=== PATIENT | male | born 1975 | race Caucasian/White ===

== ENCOUNTER 2022-10-31 07:50 | Day surgery (SDC) | payer OTHER ==
[2022-10-30 16:12] LABS: Basophils # (auto) 0.1 10 ^3/uL (0-0.2); Basophils % (auto) 0.8 % (0.0-2.0); Eosinophils # (auto) 0.1 10 ^3/uL (0-0.8); Hematocrit 41.6 % (41.0-53.0); Hemoglobin 14.5 g/dL (13.5-17.5); Lymphocytes % (auto) 28.2 % (10.0-50.0); Mean Corpuscular Hemoglobin 32.1 pg (28.0-32.0); Mean Corpuscular Hgb Conc. 34.9 g/dL (32.0-36.0); Mean Corpuscular Volume 91.8 fL (80.0-100.0); Monocytes # (auto) 0.7 10 ^3/uL (0-1.3); Monocytes % (auto) 9.7 % (0.0-12.0); Neutrophils # (auto) 4.2 10 ^3/uL (1.6-8.6); Neutrophils % (auto) 59.3 % (37.0-80.0); Red Blood Cells 4.53 10^6/uL (4.5-5.90); Red Cell Distribution Width 13.4 % (11.8-14.3)
[~2022-10-31] VITALS: Ht 167.6 cm; Wt 70.3 kg
[~2022-10-31 07:50] MED LIST: BUPR150T8 PO; OMEP-434 PO; PAR20T PO; PERCOT PO
[2022-10-31] MEDS ORDERED: PHENYLEPHRINE HCL 10 MG/ML VL IV ONE (07:51)
[2022-10-31] MEDS ORDERED: KETAMINE 50mg/ML 10ml Vial (500mg/10ml) IV ONE (07:51)
[2022-10-31] MEDS ORDERED: LIDOCAINE 1% HCL (LOCAL ANESTH.) INJ 20ML MDV ONE (08:42)
[2022-10-31] MEDS ORDERED: BUPIVACAINE 0.25% INJ 50ML VIAL ONE (08:42)
[2022-10-31] MEDS ORDERED: ceFAZolin 1GM/50ML 100 ML IV ONE (08:42)
[2022-10-31] MEDS ORDERED: ACETAMINOPHEN 500 MG TAB PO ONE (08:45)
[2022-10-31] MEDS ORDERED: CELECOXIB 100 MG CAP PO ONE (08:45)
[2022-10-31] MEDS ORDERED: GABAPENTIN 400 MG CAP PO ONE (08:45)
[2022-10-31] MEDS ORDERED: KETOROLAC TROMETH 30 MG/ML 1ML VIAL ONE (08:56)
[2022-10-31] MEDS ORDERED: DexAMETHasone SOD PHOS 10MG/1ML VIAL INJ ONE (08:56)
[2022-10-31] MEDS ORDERED: LIDOCAINE 2% (LOCAL ANESTH.) PF 5ml SDV ONE (08:56)
[2022-10-31] MEDS ORDERED: GLYCOPYRROLATE 0.2 MG/ML 1ML VIAL ONE (08:56)
[2022-10-31] MEDS ORDERED: ROCURONIUM 10MG/ML 10ML VIAL IV ONE (08:56)
[2022-10-31] MEDS ORDERED: PROPOFOL 10 MG/ML 20 ML IV ONE (08:56)
[2022-10-31] MEDS ORDERED: ONDANSETRON HCL 4 MG/2 ML VIAL ONE (08:56)
[2022-10-31] MEDS ORDERED: fentaNYL CITRATE 100 MCG/2 ML VL ONE (09:40)
[2022-10-31] MEDS ORDERED: SUGAMMADEX 200mg/2ml Vial (100MG/ML) IV ONE (09:40)
[2022-10-31] MEDS ORDERED: ESMOLOL HCL 10 ML IV ONE (10:09)
[2022-10-31] MEDS ORDERED: FLUMAZENIL 0.1 MG/ML INJ 10ML MDV IV PRN (12:15)
[2022-10-31] MEDS ORDERED: fentaNYL CITRATE 100 MCG/2 ML VL IV PRN (12:15)
[2022-10-31] MEDS ORDERED: NALOXONE HCL 0.4 MG/ML VIAL IV PRN (12:15)
[2022-10-31] MEDS ORDERED: LABETALOL HCL 5 MG/ML 4ML SYRINGE IV PRN (12:15)
[2022-10-31] MEDS ORDERED: ONDANSETRON HCL 4 MG/2 ML VIAL IV PRN (12:15)
[2022-10-31] MEDS ORDERED: oxyCODONE HCL 5MG TAB PO PRN (12:15)
[2022-10-31] MEDS ORDERED: HYDROmorphone HCL 2 MG/ML VL/or syr IV PRN (12:15)
[2022-10-31] MEDS ORDERED: hydrALAZINE HCL 20 MG/ML VL IV PRN (12:15)
[2022-10-31] MEDS ORDERED: ePHEDrine SULFATE 50 MG/ML AMP IV PRN (12:15)
[2022-10-31] MEDS ORDERED: HYDROmorphone HCL 2 MG/ML VL/or syr IV ONE (12:37)
[2022-10-31 13:25] VITALS: BP 112/79
== END 2022-10-31 11:55 | disposition home or self-care (01) ==
LOC: SUR 07:50
PROVIDERS: ATTEND Surgery
DX: K40.90 Unilateral inguinal hernia, without obstruction or gangrene, not specified as recurrent (principal); F41.9 Anxiety disorder, unspecified; Z72.0 Tobacco use; Z98.890 Other specified postprocedural states; Z79.891 Long term (current) use of opiate analgesic; Z20.822 Contact with and (suspected) exposure to COVID-19; K35.33 Acute appendicitis with perforation, localized peritonitis, and gangrene, with abscess
CPT/HCPCS: 36415; 44970; 49650; 85025; 86850; 86900; 86901; C1713; C1781; J0690; J1100; J1170; J1885; J2001; J2370; J2405; J2704; J3010; J3490; J7030; S2900

== ENCOUNTER 2023-08-22 18:33 | Inpatient (IN) | payer OTHER ==
[~2023-08-22] VITALS: Ht 165.1 cm; Wt 73.4 kg
[2023-08-22 19:47] LABS: Basophils # (auto) 0.1 10 ^3/uL (0-0.2); Basophils % (auto) 1.1 % (0.0-2.0); Eosinophils # (auto) 0.2 10 ^3/uL (0-0.8); Eosinophils % (auto) 2.4 % (0.0-7.0); Hematocrit 45.9 % (41.0-53.0); Hemoglobin 15.7 g/dL (13.5-17.5); Lymphocytes # (auto) 3.3 10 ^3/uL (0.4-5.4); Lymphocytes % (auto) 41.8 % (10.0-50.0); Mean Corpuscular Hemoglobin 31.4 pg (28.0-32.0); Mean Corpuscular Hgb Conc. 34.2 g/dL (32.0-36.0); Mean Corpuscular Volume 91.7 fL (80.0-100.0); Monocytes # (auto) 0.6 10 ^3/uL (0-1.3); Monocytes % (auto) 7.4 % (0.0-12.0); Neutrophils # (auto) 3.7 10 ^3/uL (1.6-8.6); Neutrophils % (auto) 47.3 % (37.0-80.0); Nucleated Red Blood Cells % 0.2 %; Red Cell Distribution Width 14.1 % (11.8-14.3); White Blood Cell 7.9 10^3/uL (4.4-10.8)
[2023-08-22] MEDS: KETOROLAC TROMETH 60MG/2ML VIAL IM ONE (19:54)
[2023-08-22 19:58] LABS: Calcium 9.8 mg/dL (8.5-10.1); Chloride 106 mmol/L (98-107); Potassium 3.6 mmol/L (3.5-5.1); Sodium 139 mmol/L (136-145)
[2023-08-22 19:59] LABS: Anion Gap 8 (5-15); Carbon Dioxide 25 mmol/L (20-30)
[2023-08-22 20:04] LABS: BUN/Creatinine Ratio 14.7 (10.0-20.0); Blood Urea Nitrogen 16 mg/dL (9-23); Glucose 118 mg/dL (74-106)
[2023-08-22 20:09] LABS: Lipase 39 U/L (12-53)
[2023-08-22] MEDS ORDERED: NITROGLYCERIN 0.4 MG SL TAB SL PRN (20:45)
[2023-08-22] MEDS ORDERED: MORPHINE SULFATE INJ 2 MG/ml SYRG IV PRN (20:45)
[2023-08-22] MEDS ORDERED: HYDROmorphone HCL 2 MG/ML VL/or syr IV PRN (21:00)
[2023-08-22] MEDS ORDERED: MAALOX PLUS or MAALOX 30 ML PO PRN (21:00)
[2023-08-22 21:13] LABS: Urine Bacteria NONE SEEN /hpf (None Seen); Urine Blood Negative /uL (Negative); Urine Clarity Clear (Clear); Urine Color Yellow (Yellow); Urine Mucus FEW (None Seen); Urine Protein, UAD TRACE (Negative); Urine Specific Gravity 1.019 (1.001-1.035); Urine WBC 4 /hpf (0 - 3); Urine pH 5.5 (5.0-8.0)
[2023-08-22] MEDS: LORazepam 0.5 MG TAB PO SCH (23:55)
[2023-08-22] MEDS: buPROPion HCL 75 MG TAB PO SCH (23:56)
[2023-08-22] MEDS: PANTOPRAZOLE 40mg/50ML NS AE 50 ML IV ONE (23:59)
[2023-08-23] VITALS (9 sets, daily range): BP systolic 100–115; BP diastolic 60–75; PULSE 62–77; RESP 15–20; TEMP 97.6–98.6; O2SAT 93–99
[2023-08-23] MEDS: HYDROmorphone HCL 2 MG/ML VL/or syr IV PRN (06:02)
[2023-08-23 06:10] LABS: Triglycerides 102 mg/dL (< 150)
[2023-08-23 06:11] LABS: LDL Cholesterol 114 mg/dL (< 100)
[2023-08-23 06:12] LABS: Cholesterol 162 mg/dL (< 200); HDL Cholesterol 36 mg/dL (40-59)
[2023-08-23 06:13] LABS: Basophils # (auto) 0 10 ^3/uL (0-0.2); Basophils % (auto) 0.8 % (0.0-2.0); Eosinophils # (auto) 0.3 10 ^3/uL (0-0.8); Eosinophils % (auto) 5.5 % (0.0-7.0); Hematocrit 45.2 % (41.0-53.0); Hemoglobin 15.5 g/dL (13.5-17.5); Lymphocytes # (auto) 2.5 10 ^3/uL (0.4-5.4); Lymphocytes % (auto) 42.4 % (10.0-50.0); Mean Corpuscular Hemoglobin 31.5 pg (28.0-32.0); Mean Corpuscular Hgb Conc. 34.3 g/dL (32.0-36.0); Monocytes # (auto) 0.6 10 ^3/uL (0-1.3); Neutrophils # (auto) 2.5 10 ^3/uL (1.6-8.6); Neutrophils % (auto) 41.3 % (37.0-80.0); Nucleated Red Blood Cells % 0.2 %; Red Blood Cells 4.91 10^6/uL (4.5-5.90); Red Cell Distribution Width 14.2 % (11.8-14.3)
[2023-08-23 06:14] LABS: Alanine Aminotransferase 55 U/L (7-40); Albumin 4.2 g/dL (3.2-4.8); Alkaline Phosphatase 100 U/L (46-116); Anion Gap 6 (5-15); Aspartate Aminotransferase 104 U/L (13-40); BUN/Creatinine Ratio 12.3 (10.0-20.0); Blood Urea Nitrogen 15 mg/dL (9-23); Calcium 9.2 mg/dL (8.7-10.4); Carbon Dioxide 27 mmol/L (20-30); Chloride 107 mmol/L (98-107); Glucose 119 mg/dL (74-106); Potassium 4.2 mmol/L (3.5-5.1); Sodium 140 mmol/L (136-145)
[2023-08-23 06:15] LABS: Bilirubin, Total 2.5 mg/dL (0.2-1.0); Total Protein 6.7 g/dL (5.7-8.2)
[2023-08-23 06:55] LABS: Lipase 47 U/L (12-53)
[2023-08-23] MEDS: PARoxetine 20 MG TAB PO SCH (10:43)
[2023-08-23] MEDS: GOLYTELY 4L KIT PO ONE (15:48)
[2023-08-23] MEDS: BISACODYL 5 MG EC TAB PO ONE (15:48)
[2023-08-23] MEDS: FOLIC ACID 1 MG, MULTIPLE VITAMIN 10 ML, MAGNESIUM SULF SDV 50% 8 MEQ, THIAMINE INJ 100... INJ SCH (18:00)
[2023-08-23 19:21] LABS: Urine Bacteria NONE SEEN /hpf (None Seen); Urine Blood Negative /uL (Negative); Urine Clarity Clear (Clear); Urine Color Yellow (Yellow); Urine Mucus FEW (None Seen); Urine Protein, UAD Negative (Negative); Urine Specific Gravity 1.016 (1.001-1.035); Urine Urobilinogen Normal (Negative); Urine WBC 1 /hpf (0 - 3)
[2023-08-23 19:28] LABS: Amphetamine Screen, Urine Pos (NEGATIVE); Barbiturate Scree,Urine Neg (NEGATIVE); Benzodiazephine Screen, Urine Neg (NEGATIVE); Cannabinoid Screen, Urine Pos (NEGATIVE); Cocaine Screen, Urine Neg (NEGATIVE); Opiate Scree,Urine Neg (NEGATIVE); Phencyclidine Screen, Urine Neg (NEGATIVE)
[2023-08-24 05:00] VITALS: BP 113/60; PULSE 64; RESP 20; TEMP 98; O2SAT 97
[2023-08-24 07:41] LABS: INR 1.04 (0.9-1.15); Partial Thromboplastin Time 27.9 SEC (24.5-34.5); Prothrombin Time 10.9 sec (9.3-11.8)
[2023-08-24 08:00] VITALS: PULSE 56
[2023-08-24] MEDS ORDERED: LIDOCAINE HCL 2% TOP JELLY 5ML TOP ONE (08:37)
[2023-08-24] MEDS ORDERED: MIDAZOLAM HCL 5 MG/ML-1ML VIAL ONE (08:38)
[2023-08-24] MEDS ORDERED: diphenhdrAMINE HCL 50 MG/1 ML VL ONE (08:38)
[2023-08-24] MEDS ORDERED: fentaNYL CITRATE 100 MCG/2 ML VL ONE ×2 (08:39→09:48)
[2023-08-24] MEDS ORDERED: LIDOCAINE VISCOUS 2% 15ML UD ONE (08:39)
[2023-08-24] MEDS ORDERED: SODIUM CHLORIDE LOCK 10 ML ONE (08:41)
[2023-08-24 09:04] VITALS: BP 109/67; PULSE 73; RESP 22; TEMP 98.3; O2SAT 99
[2023-08-24] MEDS ORDERED: MEPERIDINE HCL (25 MG/ML) 1ML VIAL ONE (09:48)
[2023-08-24] MEDS ORDERED: MIDAZOLAM HCL 2MG/2ML 2ml VIAL (1mg/ml) ONE (09:49)
[2023-08-24] MEDS ORDERED: PROPOFOL 10 MG/ML 20 ML IV ONE (09:58)
[2023-08-24] MEDS ORDERED: DexAMETHasone SOD PHOS 10MG/1ML VIAL INJ ONE (09:58)
[2023-08-24] MEDS ORDERED: LABETALOL HCL 5 MG/ML 4ML SYRINGE IV PRN (10:15)
[2023-08-24] MEDS ORDERED: MORPHINE SULFATE 4 MG/ML SYR/VIAL IV PRN (10:15)
[2023-08-24] MEDS ORDERED: MIDAZOLAM HCL 2MG/2ML 2ml VIAL (1mg/ml) IV PRN (10:15)
[2023-08-24] MEDS ORDERED: ONDANSETRON HCL 4 MG/2 ML VIAL IV PRN (10:15)
[2023-08-24] MEDS ORDERED: ePHEDrine SULFATE 50 MG/ML AMP IV PRN (10:15)
[2023-08-24] MEDS ORDERED: HYDROmorphone HCL 2 MG/ML VL/or syr IV PRN (10:15)
[2023-08-24 10:32] VITALS: PULSE 54; RESP 10; O2SAT 99
[2023-08-24 10:50] VITALS: PULSE 56; RESP 11; O2SAT 100
[2023-08-24 13:00] VITALS: BP 99/48; PULSE 65; RESP 20; TEMP 98.6; O2SAT 97
== END 2023-08-24 14:44 | disposition left against medical advice (07) | DRG 384 ==
LOC: ER 18:33 → TELE 20:48 → TELE-EAST 23:28
PROVIDERS: ADMIT Specialist; ATTEND Specialist
PROC: 0DBP8ZZ Excision of Rectum, Via Natural or Artificial Opening Endoscopic (ICD-10-PCS; 2023-08-24)
PROC: 0DB78ZX Excision of Stomach, Pylorus, Via Natural or Artificial Opening Endoscopic, Diagnostic (ICD-10-PCS; principal; 2023-08-24 09:45)
PROC: 0DBN8ZX Excision of Sigmoid Colon, Via Natural or Artificial Opening Endoscopic, Diagnostic (ICD-10-PCS; 2023-08-24 09:45)
DX: K26.9 Duodenal ulcer, unspecified as acute or chronic, without hemorrhage or perforation (principal); F17.210 Nicotine dependence, cigarettes, uncomplicated; K74.60 Unspecified cirrhosis of liver; F41.9 Anxiety disorder, unspecified; F31.9 Bipolar disorder, unspecified; E86.1 Hypovolemia; F15.10 Other stimulant abuse, uncomplicated; E66.9 Obesity, unspecified; F14.10 Cocaine abuse, uncomplicated; K44.9 Diaphragmatic hernia without obstruction or gangrene; K29.60 Other gastritis without bleeding; K29.80 Duodenitis without bleeding; K59.00 Constipation, unspecified; K64.8 Other hemorrhoids; K57.30 Diverticulosis of large intestine without perforation or abscess without bleeding; Z53.29 Procedure and treatment not carried out because of patient's decision for other reasons; Z63.72 Alcoholism and drug addiction in family; Z81.1 Family history of alcohol abuse and dependence; Z68.26 Body mass index [BMI] 26.0-26.9, adult
CPT/HCPCS: 36415; 74176; 80048; 80053; 80061; 80307; 81001; 83605; 83690; 84484; 85025; 85610; 85730; 86850; 86900; 86901; 87086; 93005; 96365; 96372; G0378; J1100; J1885; J2250; J2704

== ENCOUNTER 2023-08-24 18:12 | Emergency (ER) | payer OTHER ==
[~2023-08-24] VITALS: Ht 167.6 cm; Wt 73.2 kg
[2023-08-24 18:52] VITALS: BP 124/85; PULSE 88; RESP 16; O2SAT 99
[2023-08-24] MEDS ORDERED: ONDANSETRON HCL 4 MG/2 ML VIAL IV ONE (20:15)
[2023-08-24] MEDS ORDERED: SODIUM CHLORIDE 0.9% 1,000 ML IV ONE (20:15)
[2023-08-24] MEDS ORDERED: PANTOPRAZOLE 40 MG/10 ML VIAL INJ IV ONE (20:15)
== END 2023-08-24 21:52 | disposition left against medical advice (07) ==
LOC: ER 18:12
DX: R10.9 Unspecified abdominal pain (principal); R11.10 Vomiting, unspecified; F17.210 Nicotine dependence, cigarettes, uncomplicated; F10.90 Alcohol use, unspecified, uncomplicated; F15.90 Other stimulant use, unspecified, uncomplicated; Z79.899 Other long term (current) drug therapy; Z53.29 Procedure and treatment not carried out because of patient's decision for other reasons; Y90.0 Blood alcohol level of less than 20 mg/100 ml
CPT/HCPCS: 74176; 93005

== ENCOUNTER 2023-08-24 21:21 | Inpatient (IN) | payer OTHER ==
[~2023-08-24] VITALS: Ht 167.6 cm; Wt 59.0 kg
[2023-08-25] MEDS ORDERED: FOLIC ACID 1 MG, MULTIPLE VITAMIN 10 ML, MAGNESIUM SULF SDV 50% 8 MEQ, THIAMINE INJ 100... INJ SCH ×4 (00:15→18:00)
[2023-08-25] MEDS ORDERED: MORPHINE SULFATE INJ 2 MG/ml SYRG IV PRN ×4 (00:15→05:30)
[2023-08-25] MEDS ORDERED: NITROGLYCERIN 0.4 MG SL TAB SL PRN ×4 (00:15→05:30)
[2023-08-25] MEDS: PANTOPRAZOLE 80 MG in SODIUM CHL 0.9% 100 ML IV ONE ×2 (00:30→05:30)
[2023-08-25] MEDS ORDERED: OXYCODONE W/ ACETAMINOPHEN 5/325MG TABLET PO PRN (00:30)
[2023-08-25] MEDS ORDERED: MAALOX PLUS or MAALOX 30 ML PO PRN ×2 (00:30→05:30)
[2023-08-25] MEDS ORDERED: LORazepam 0.5 MG TAB PO SCH (00:30)
[2023-08-25] MEDS ORDERED: HYDROmorphone HCL 2 MG/ML VL/or syr IV PRN ×4 (00:30→05:30)
[2023-08-25 01:09] LABS: Basophils # (auto) 0.1 10 ^3/uL (0-0.2); Basophils % (auto) 0.6 % (0.0-2.0); Eosinophils # (auto) 0 10 ^3/uL (0-0.8); Hematocrit 42.6 % (41.0-53.0); Hemoglobin 14.4 g/dL (13.5-17.5); Lymphocytes # (auto) 1.1 10 ^3/uL (0.4-5.4); Lymphocytes % (auto) 7.2 % (10.0-50.0); Mean Corpuscular Hemoglobin 31.5 pg (28.0-32.0); Mean Corpuscular Hgb Conc. 33.7 g/dL (32.0-36.0); Mean Corpuscular Volume 93.3 fL (80.0-100.0); Monocytes # (auto) 0.4 10 ^3/uL (0-1.3); Monocytes % (auto) 2.6 % (0.0-12.0); Neutrophils # (auto) 13.5 10 ^3/uL (1.6-8.6); Neutrophils % (auto) 89.6 % (37.0-80.0); Red Blood Cells 4.56 10^6/uL (4.5-5.90); Red Cell Distribution Width 14.2 % (11.8-14.3)
[2023-08-25 01:23] LABS: Alanine Aminotransferase 50 U/L (7-40); Albumin 4.4 g/dL (3.2-4.8); Alkaline Phosphatase 99 U/L (46-116); Anion Gap 4 (5-15); Aspartate Aminotransferase 50 U/L (13-40); BUN/Creatinine Ratio 12.8 (10.0-20.0); Blood Urea Nitrogen 11 mg/dL (9-23); Calcium 9.7 mg/dL (8.5-10.1); Carbon Dioxide 27 mmol/L (20-30); Chloride 109 mmol/L (98-107); Glucose 135 mg/dL (74-106); Potassium 4.5 mmol/L (3.5-5.1); Sodium 140 mmol/L (136-145)
[2023-08-25 01:24] LABS: Bilirubin, Total 0.9 mg/dL (0.2-1.0); Total Protein 6.8 g/dL (5.7-8.2)
[2023-08-25 01:51] LABS: Blood Alcohol < 3.0 mg/dL (<10)
[2023-08-25 04:10] VITALS: BP 125/72; PULSE 64; RESP 13; TEMP 98.3; O2SAT 99
[2023-08-25] MEDS: PANTOPRAZOLE 40 MG/10 ML VIAL INJ IV ONE (05:30)
[2023-08-25] MEDS: OXYCODONE W/ ACETAMINOPHEN 5/325MG TABLET PO PRN (05:39)
[2023-08-25] MEDS: LORazepam 0.5 MG TAB PO SCH (05:39)
[2023-08-25] MEDS: SUCRALFATE 1 GM TAB PO SCH (05:40)
[2023-08-25] MEDS ORDERED: SUCRALFATE 1 GM TAB PO SCH (06:00)
== END 2023-08-25 09:24 | disposition left against medical advice (07) | DRG 384 ==
LOC: EDBD 21:21 → ER 21:21 → OVERFLOW 08-25 00:19 → ER 08-25 00:19
PROVIDERS: ADMIT Specialist; ATTEND Specialist
DX: K26.9 Duodenal ulcer, unspecified as acute or chronic, without hemorrhage or perforation (principal); F10.231 Alcohol dependence with withdrawal delirium; E86.1 Hypovolemia; E66.3 Overweight; Z68.27 Body mass index [BMI] 27.0-27.9, adult; F41.9 Anxiety disorder, unspecified; F15.10 Other stimulant abuse, uncomplicated; F10.229 Alcohol dependence with intoxication, unspecified; E66.9 Obesity, unspecified; F17.210 Nicotine dependence, cigarettes, uncomplicated; F31.9 Bipolar disorder, unspecified; K29.60 Other gastritis without bleeding; Z53.29 Procedure and treatment not carried out because of patient's decision for other reasons; Z63.72 Alcoholism and drug addiction in family; Z81.1 Family history of alcohol abuse and dependence; Z91.199 Patient's noncompliance with other medical treatment and regimen due to unspecified reason
CPT/HCPCS: 36415; 80053; 80320; 83735; 85025; 96365; C9113; G0378